=== PATIENT | male | born 1955 | race African-American/Black ===

== ENCOUNTER 2017-07-29 10:03 | Emergency (ER) | payer OTHER ==
[2017-07-29 10:56] LABS: #Basophils 0.2 thou/uL (0.0-0.2); #Eosinphils 0.2 thou/uL (0.0-0.7); #Lymphocytes 2.1 thou/uL (1.20-3.40); #Monocytes 0.5 thou/uL (0.11-0.59); #Neutrophils 2.7 thou/uL (1.40-6.50); %Basophils 2.9 % (0.0-1.0); %Eosinophils 4.3 % (0.0-10.0); %Lymphocytes 36.5 % (21.0-51.0); %Neutrophils 47.2 % (42.0-75.0); Hemoglobin 12.5 g/dL (14.0-18.0); Mean Corpuscular HGB CONC 33.3 g/dL (32.0-36.0); Mean Corpuscular Hemoglobin 31.1 pg (27.0-31.0); Mean Corpuscular Volume 93.4 fl (80.0-94.0); Mean Platelet Volume 9.1 fL (7.4-10.4); Platelet Count 205 thou/uL (130-400); RBC Distribution Width 11.4 % (11.5-14.5); Red Blood Cell (RBC) Count 4.02 mill/uL (4.70-6.10); White Blood Cell (WBC) Count 5.7 thou/uL (4.8-10.8)
[2017-07-29 11:16] LABS: ALT (SGPT) 7 U/L (8-55); AST (SGOT) 11 U/L (5-34); Albumin 3.6 g/dL (3.4-4.8); Alkaline Phosphatase 85 U/L (40-150); Anion Gap 9 mmol/L (10-20); BUN (Urea Nitrogen) 13 mg/dL (8.4-25.7); Bilirubin, Total 0.5 mg/dL (0.2-1.2); CK (CPK) 198 U/L (30-200); Calc. Creatinine Clearance 0 mL/min (70-130); Calcium 9.1 mg/dL (7.8-10.44); Carbon Dioxide 28 mmol/L (23-31); Chloride 104 mmol/L (98-107); Estimated GFR-MDRD 74; Globulin 3.5 g/dL (2.4-3.5); Glucose 95 mg/dL (80-115); Lipase 15 U/L (8-78); Protein, Total 7.1 g/dL (5.8-8.1); Sodium 137 mmol/L (136-145)
[2017-07-29 11:20] LABS: CKMB 1.3 ng/mL (0-6.6); Troponin I Less than 0.010 ng/mL (< 0.028)
--- NOTE | 2017-07-29 11:30 | RAD ---
AP VIEW CHEST: Date: 07/29/17 HISTORY: Arm swelling. Chest pain. FINDINGS: AP view chest obtained. The lungs are well aerated. No evidence of active intrathoracic disease is se en. No evidence of effusions, pneumonia, or pneumothorax seen. IMPRESSION: Unremarkable AP view of chest. POS: [facility]
--- NOTE | 2017-07-29 14:21 | ULT ---
LEFT UPPER EXTREMITY VENOUS DOPPLER: Date; 07/29/17 HISTORY: Arm swelling. COMPARISON: None. TECHNIQUE: Real-time Bhandari scale and color Doppler with spectral analysis of the left upper extremity venous syst em was performed, including internal jugular and subclavian axillary veins, as well as the basilic, b rachial, ulnar, and radial veins. FINDINGS: No deep venous thrombosis. Normal flow, augmentation, and compression. IMPRESSION: No deep venous thrombosis. POS: [id number]
== END 2017-07-29 14:45 | disposition home or self-care (01) ==
LOC: ERS 10:03
DX: M79.89 Other specified soft tissue disorders (principal); E11.9 Type 2 diabetes mellitus without complications; E78.5 Hyperlipidemia, unspecified; I10 Essential (primary) hypertension; Z79.84 Long term (current) use of oral hypoglycemic drugs; Z79.899 Other long term (current) drug therapy
CPT/HCPCS: 36415; 71045; 80053; 82550; 82553; 83690; 84484; 85025; 93005